=== PATIENT | female | born 1980 | race Caucasian/White ===

== ENCOUNTER 2017-07-25 06:21 | Day surgery (SDC) | payer OTHER ==
[2017-07-25] VITALS (14 sets, daily range): BP systolic 91–111; BP diastolic 53–84; PULSE 50–59; RESP 16–24; Ht 157.5 cm; Wt 72.6 kg
[~2017-07-25] VITALS: Ht 157.5 cm; Wt 72.6 kg
[2017-07-25] MEDS ORDERED: GLYCOPYRROLATE 0.4 MG INJ ONE (07:00)
[2017-07-25] MEDS ORDERED: NEOSTIGMINE 3 MG/3 ML SYRINGE ONE (07:00)
[2017-07-25] MEDS ORDERED: SOD CHLORIDE 0.9% 1,000 ML IV SCH (07:00)
[2017-07-25] MEDS ORDERED: CEFAZOLIN 2 GM/50 ML (PMX) 50 ML IVPB ONE (07:00)
[2017-07-25] MEDS ORDERED: ACETAMINOPHEN 1000 MG/100 ML IVPB ONE (07:00)
[2017-07-25] MEDS ORDERED: CEFAZOLIN 1 GM INJ ONE (07:00)
[2017-07-25] MEDS ORDERED: BUPIVACAINE 0.25% (MPF) 30 ML INJ ONE (07:33)
[2017-07-25] MEDS ORDERED: ROCURONIUM 50 MG INJ ONE (08:01)
[2017-07-25] MEDS ORDERED: PROPOFOL 100 ML ONE (08:01)
[2017-07-25] MEDS ORDERED: LIDOCAINE 2% (SDV) 5 ML INJ ONE (08:01)
[2017-07-25] MEDS ORDERED: FENTAnyl 50 MCG/ML VIAL ONE (08:02)
[2017-07-25] MEDS ORDERED: DIPHENHYDRAMINE 50 MG INJ IV PRN (08:30)
[2017-07-25] MEDS ORDERED: EPHEDrine SULFATE 50 MG/5 ML SYG IV PRN (08:30)
[2017-07-25] MEDS ORDERED: MEPERIDINE 25 MG INJ IV PRN (08:30)
[2017-07-25] MEDS ORDERED: FENTAnyl 50 MCG/ML VIAL IV PRN ×3 (08:30)
[2017-07-25] MEDS ORDERED: LABETALOL HCL 20MG INJ IV PRN (08:30)
[2017-07-25] MEDS ORDERED: ALBUTEROL 0.083% (NEB) 2.5 MG/3 ML AMP HHN PRN (08:30)
[2017-07-25] MEDS ORDERED: KETOROLAC 30 MG INJ IV PRN (08:30)
[2017-07-25] MEDS ORDERED: OXYCODONE/ACETAMINOPHEN (5/325) TAB PO PRN ×2 (08:30)
[2017-07-25] MEDS ORDERED: ONDANSETRON 4 MG INJ IV PRN (08:30)
[2017-07-25] MEDS ORDERED: METOCLOPRAMIDE 10 MG INJ IV PRN (08:30)
[2017-07-25] MEDS ORDERED: HYDROmorphONE (0.2 MG/ML) 10ML SYG IV PRN ×2 (08:30)
[2017-07-25] MEDS ORDERED: hydrALAzine 20 MG INJ IV PRN (08:30)
[2017-07-25] MEDS ORDERED: MIDAZOLAM 1 MG/ML 2 ML INJ IV PRN (08:30)
[2017-07-25] MEDS ORDERED: DEXAMETHASONE 4 MG/ML 1 ML INJ ONE (08:53)
[2017-07-25] MEDS ORDERED: ONDANSETRON 4 MG INJ ONE (08:54)
--- NOTE | 2017-07-25 09:28 | OPR ---
Date/Time of Note Date/Time of Note DATE: 07/25/17 TIME: 09:24 Operative Report Procedure Date: Jul 25, 2017 Preoperative Diagnosis symptomatic gallstones Postoperative Diagnosis same Operation/Procedure Performed 1. laparoscopic cholecystectomy 2. therapeutic injection of subcutaneous local anesthesia Surgeon see signature line [employer] Leader none Anesthesia Type: general Estimated Blood Loss: 0 - 10 ml's Transfusion none Specimen gallbladder Grafts/Implants none Complications none Pt Condition Post Procedure: stable Indications This is a 36-year-old female with symptomatic gallstones. She requests surgical excision of her gallbladder. Risks alternatives benefits and personnel were discussed the patient. Patient expresses understanding consents to the operation. Procedure Description Patient taken to the OR and prepped and draped in usual sterile fashion. Surgical timeout was performed. IV antibiotics given. Infraumbilical transverse incision is made with a 15 blade. Dissection Carrs carried onto the fascia. The fascia was grasped with [place]'s and divided with curved Grewal scissors. 0 Vicryl U stitch was placed into the fascia. Blueness on trocar is introduced. Pneumoperitoneum is established. Midepigastric 12 mm optical trocar was placed under direct visualization. Right upper quadrant upper flank 5 mm optical trocar was placed under direct visualization. Upon initial inspection there are some adhesions to the gallbladder which were taken down bluntly. The gallbladder is grasped by the fundus and retracted in a lateral our direction. Cautery was used for initiation of the lateral dissection. Further careful dissection allowed identification of the cystic duct and cystic artery. The cystic duct and the critical view is established. The cystic duct was divided with 3 clips proximal and clip distal. The cystic artery was divided with 3 clips proximal and clip distal. The gallbladder is taken of the gallbladder bed. There is good hemostasis. The gallbladder is retrieved using Endo Catch bag. Ports removed under direct visualization. 0 Vicryl U stitch was tied down. Skin is closed using inzorb staplers. Therapeutic subcutaneous local anesthesia is injected dry dressings were applied. Eduardo ESQUIVEL Jul 25, 2017 09:28
[2017-07-25] MEDS ORDERED: HYDROCODONE/APAP (5/325) TAB PO ONE (09:30)
[2017-07-25] MEDS: HYDROmorphONE (0.2 MG/ML) 10ML SYG IV PRN ×2 (09:40→10:00)
== END 2017-07-25 11:00 | disposition home or self-care (01) ==
LOC: SDS 06:21
PROVIDERS: ATTEND Surgery
DX: K80.10 Calculus of gallbladder with chronic cholecystitis without obstruction (principal); E66.9 Obesity, unspecified; Z68.29 Body mass index [BMI] 29.0-29.9, adult
CPT/HCPCS: 47562; 84703; 88304; J0131; J0690; J1100; J1170; J2175; J2405; J2710; J3010; Z7512; Z7610

== ENCOUNTER 2019-01-10 10:19 | Day surgery (SDC) | payer OTHER ==
[~2019-01-10] VITALS: Ht 157.5 cm; Wt 50.4 kg
[2019-01-10 11:07] VITALS: Ht 157.5 cm; Wt 50.4 kg
[2019-01-10] MEDS ORDERED: AMOXICILLIN (11:14)
[2019-01-10 11:29] VITALS: BP 90/50; PULSE 50; RESP 13
[2019-01-10] MEDS ORDERED: MIDAZOLAM 1 MG/ML 2 ML INJ ONE ×2 (12:54)
[2019-01-10] MEDS ORDERED: FENTAnyl 50 MCG/ML VIAL ONE (12:54)
[2019-01-10 12:58] VITALS: BP 96/55; PULSE 48; RESP 24
== END 2019-01-10 13:42 | disposition home or self-care (01) ==
LOC: GIL 10:19
PROVIDERS: ATTEND Internal Medicine Gastroenterology
DX: D12.4 Benign neoplasm of descending colon (principal)
CPT/HCPCS: 45385; 84703; 88305; J2250; J3010; Z7610

== ENCOUNTER 2019-02-08 07:58 | Day surgery (SDC) | payer OTHER ==
[~2019-02-08] VITALS: Ht 157.5 cm; Wt 53.0 kg
[~2019-02-08 07:58] MED LIST: AMOXICILLIN
[2019-02-08 09:13] VITALS: Ht 157.5 cm; Wt 53.0 kg
[2019-02-08 09:44] VITALS: BP 108/50; PULSE 52; RESP 33
[2019-02-08] MEDS ORDERED: LIDOCAINE 4% SOLUTION 50 ML BTL ONE (09:51)
[2019-02-08] MEDS ORDERED: MIDAZOLAM 1 MG/ML 2 ML INJ ONE ×3 (10:29)
[2019-02-08] MEDS ORDERED: FENTAnyl 50 MCG/ML VIAL ONE (10:29)
[2019-02-08 10:40] VITALS: BP 124/61; RESP 36
== END 2019-02-08 15:45 | disposition home or self-care (01) ==
LOC: GIL 07:58
PROVIDERS: ATTEND Internal Medicine Gastroenterology
DX: K29.50 Unspecified chronic gastritis without bleeding (principal)
CPT/HCPCS: 43239; 88305; 88312; J2250; J3010; Z7610